=== PATIENT | male | born 1960 | race Asian ===

== ENCOUNTER 2016-08-05 18:02 | Emergency (ER) | payer OTHER ==
[~2016-08-05] VITALS: Ht 444.5 cm; Wt 77.1 kg
== END 2016-08-05 19:01 | disposition home or self-care (01) ==
LOC: ED 18:02
PROC: 3E1CX8Z Irrigation of Eye using Irrigating Substance (ICD-10-PCS; principal; 2016-08-05)
DX: S05.02XA Injury of conjunctiva and corneal abrasion without foreign body, left eye, initial encounter (principal)
CPT/HCPCS: 99283

== ENCOUNTER 2018-07-08 10:50 | Emergency (ER) | payer OTHER ==
[~2018-07-08] VITALS: Ht 172.7 cm; Wt 79.4 kg
[2018-07-08 12:24] LABS: PLATELET COUNT 228 K/uL (142-355)
[2018-07-08 12:26] LABS: POTASSIUM 3.9 mmol/L (3.6-5.2); SODIUM 138 mmol/L (136-145)
[2018-07-08 13:05] VITALS: BP 117/76; TEMP 97.7
== END 2018-07-08 13:05 | disposition home or self-care (01) ==
LOC: ED 10:50
PROVIDERS: Emergency Medicine
DX: R51 Headache (principal); J32.4 Chronic pansinusitis; R00.1 Bradycardia, unspecified
CPT/HCPCS: 36415; 80053; 84484; 85027; 93005; 96372; 99283; J1885

== ENCOUNTER 2018-11-14 21:44 | Emergency (ER) | payer OTHER ==
[~2018-11-14] VITALS: Ht 172.7 cm; Wt 79.4 kg
[2018-11-14 23:02] LABS: PLATELET COUNT 253 K/uL (142-355)
[2018-11-14 23:14] LABS: POTASSIUM 3.5 mmol/L (3.6-5.2)
[2018-11-15 01:02] VITALS: BP 114/76; TEMP 98.4
== END 2018-11-15 00:57 | disposition home or self-care (01) ==
LOC: ED 21:44
PROVIDERS: Family Medicine
DX: M25.462 Effusion, left knee (principal); M17.12 Unilateral primary osteoarthritis, left knee
CPT/HCPCS: 36415; 80053; 84550; 85027; 96372; 99283; J1885; J2930

== ENCOUNTER 2019-08-06 12:54 | Emergency (ER) | payer OTHER ==
[~2019-08-06] VITALS: Ht 172.7 cm; Wt 79.4 kg
[2019-08-06 14:08] VITALS: BP 129/78; TEMP 97.7
== END 2019-08-06 14:09 | disposition home or self-care (01) ==
LOC: ED 12:54
DX: L03.317 Cellulitis of buttock (principal)
CPT/HCPCS: 99281

== ENCOUNTER 2020-08-30 17:15 | Emergency (ER) | payer OTHER ==
[~2020-08-30] VITALS: Ht 172.7 cm; Wt 79.4 kg
[2020-08-30 17:29] VITALS: TEMP 97.6
[2020-08-30 18:14] VITALS: BP 110/60
== END 2020-08-30 18:25 | disposition home or self-care (01) ==
LOC: ED 17:15
DX: G44.209 Tension-type headache, unspecified, not intractable (principal)
CPT/HCPCS: 96372; 99283; J1885; J2405

== ENCOUNTER 2020-10-30 19:46 | Emergency (ER) | payer OTHER ==
[~2020-10-30] VITALS: Ht 172.7 cm; Wt 79.4 kg
[2020-10-30 21:32] VITALS: BP 144/94; TEMP 98.8
== END 2020-10-30 21:34 | disposition home or self-care (01) ==
LOC: ED 19:46
DX: N40.1 Benign prostatic hyperplasia with lower urinary tract symptoms (principal); R30.0 Dysuria
CPT/HCPCS: 81000; 99283

== ENCOUNTER 2021-05-04 14:29 | Emergency (ER) | payer OTHER ==
[~2021-05-04] VITALS: Ht 172.7 cm; Wt 79.4 kg
[2021-05-04 16:50] VITALS: BP 138/80; TEMP 98.9
== END 2021-05-04 16:50 | disposition home or self-care (01) ==
LOC: ED 14:29
DX: R36.9 Urethral discharge, unspecified (principal); R30.0 Dysuria
CPT/HCPCS: 81000; 96372; 99283; J0696

== ENCOUNTER 2021-12-27 11:23 | Emergency (ER) | payer OTHER ==
[~2021-12-27] VITALS: Ht 172.7 cm; Wt 83.9 kg
[2021-12-27 11:34] VITALS: BP 105/62; TEMP 97
[2021-12-27 11:53] LABS: PLATELET COUNT 245 K/uL (142-355)
[2021-12-27 12:02] LABS: POTASSIUM 3.7 mmol/L (3.6-5.2)
== END 2021-12-27 12:36 | disposition home or self-care (01) ==
LOC: ED 11:23
PROVIDERS: Hospitalist
DX: N41.8 Other inflammatory diseases of prostate (principal)
CPT/HCPCS: 80048; 81002; 85027; 86592; 87490; 87590; 96372; 99283; J0696; J1885

== ENCOUNTER 2022-01-05 14:27 | Emergency (ER) | payer OTHER ==
[~2022-01-05] VITALS: Ht 172.7 cm; Wt 83.9 kg
[2022-01-05 16:19] VITALS: BP 100/74; TEMP 98.1
== END 2022-01-05 16:19 | disposition home or self-care (01) ==
LOC: ED 14:27
DX: A51.49 Other secondary syphilitic conditions (principal); Z20.822 Contact with and (suspected) exposure to COVID-19
CPT/HCPCS: 81002; 87502; 87635; 87651; 96372; 99283; J0561; U0003

== ENCOUNTER 2022-02-02 14:08 | Emergency (ER) | payer OTHER ==
[~2022-02-02] VITALS: Ht 172.7 cm; Wt 79.4 kg
[2022-02-02 14:20] VITALS: TEMP 99
[2022-02-02] MEDS ORDERED: 904272561 PO (18:37)
[2022-02-02 18:45] VITALS: BP 148/88
== END 2022-02-02 18:46 | disposition home or self-care (01) ==
LOC: ED 14:08
DX: N41.8 Other inflammatory diseases of prostate (principal); N40.1 Benign prostatic hyperplasia with lower urinary tract symptoms; R39.12 Poor urinary stream
CPT/HCPCS: 81002; 99284

== ENCOUNTER 2022-09-13 02:18 | Emergency (ER) | payer OTHER ==
[~2022-09-13] VITALS: Ht 172.7 cm; Wt 81.6 kg
[~2022-09-13 02:18] MED LIST: 904272561 PO
[2022-09-13 03:30] VITALS: BP 136/78; TEMP 98.7
== END 2022-09-13 03:30 | disposition home or self-care (01) ==
LOC: ED 02:18
PROC: 0T9B70Z Drainage of Bladder with Drainage Device, Via Natural or Artificial Opening (ICD-10-PCS; principal; 2022-09-13)
DX: N40.1 Benign prostatic hyperplasia with lower urinary tract symptoms (principal); R39.11 Hesitancy of micturition
CPT/HCPCS: 51702; 81002; 99283

== ENCOUNTER 2022-11-21 00:58 | Emergency (ER) | payer OTHER ==
[~2022-11-21] VITALS: Ht 172.7 cm; Wt 81.6 kg
[2022-11-21 01:00] VITALS: BP 160/108; TEMP 98.4
[2022-11-21 01:40] LABS: PLATELET COUNT 231 K/uL (142-355)
== END 2022-11-21 02:20 | disposition home or self-care (01) ==
LOC: ED 00:58
PROVIDERS: Family Medicine
DX: R33.9 Retention of urine, unspecified (principal); N41.9 Inflammatory disease of prostate, unspecified
CPT/HCPCS: 51702; 80053; 81000; 85027; 96372; 99284; J1885

== ENCOUNTER 2022-11-23 13:49 | Emergency (ER) | payer OTHER ==
[~2022-11-23] VITALS: Ht 172.7 cm; Wt 81.6 kg
[2022-11-23 14:58] LABS: PLATELET COUNT 226 K/uL (142-355)
[2022-11-23 16:06] VITALS: BP 126/72; TEMP 97.6
== END 2022-11-23 16:11 | disposition home or self-care (01) ==
LOC: ED 13:49
PROVIDERS: Family Medicine
DX: R31.9 Hematuria, unspecified (principal); T83.098A Other mechanical complication of other urinary catheter, initial encounter
CPT/HCPCS: 80053; 85027; 96360; 99284